=== PATIENT | male | born 1975 | race Caucasian/White ===

== ENCOUNTER 2022-06-09 17:08 | Inpatient (IN) | payer OTHER, SELFPAY ==
[2022-06-09 17:21] VITALS: BP 148/70; PULSE 67; RESP 18; TEMP 36.1; O2SAT 99; BMI 28.2
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
--- NOTE | 2022-06-09 18:31 | PC.NURSE ---
supplemental to triage: client states several years from lives in basement states has good jobs and doesnt even feel like an adult with a life anymore states HTN, elevated [id number], depression, anxiety, on oxycodone, xanax effexor, expresses anxious concern about his meds. reports previous suicide attempt with ether and a plastic bag, unsuccessful. patients father waited in waiting room along with client. statets finacial diffculty also acute depression duration two months. denies allucinations states onlyh uses thc at hs to help sleep.
[2022-06-09 18:36] LABS: COVID-19 Test Negative (Negative)
[2022-06-09 19:49] LABS: MANUAL DIFF FLAG NO
[2022-06-09 19:57] LABS: Basophils Absolute Auto 0.1 X10*3/uL (0.0-0.2); Basophils Percent Auto 0.7 % (0-2); Eosinophils Absolute Auto 0.1 X10*3/uL (0.0-0.4); Eosinophils Percent Auto 1.5 % (0-4); Hemoglobin 14.9 g/dl (14.0-18.0); Imm Gran Abs Auto 0.03 X10*3/uL (0.00-0.03); Imm Gran Pct Auto 0.3 % (0.0-0.4); Lymphocytes Absolute Auto 1.6 X10*3/uL (1.2-4.9); Lymphocytes Percent Auto 18.1 % (20-40); Mean Corpuscular HGB Conc 33.9 g/dl (31.0-36.0); Mean Corpuscular Hemoglobin 30.3 pg (27.0-33.0); Mean Corpuscular Volume 89.4 fL (80.0-98.0); Mean Platelet Volume 10.4 fL (9.4-12.4); Monocytes Absolute Auto 0.4 X10*3/uL (0.1-1.2); Monocytes Percent Auto 4.4 % (2-11); Neutrophils Absolute Auto 6.7 x10*3/uL (2.0-8.3); Platelet Count 294 X10*3/uL (160-400); Red Blood Count 4.92 X10*6/uL (4.60-5.80); White Blood Count 8.9 X10*3/uL (4.8-10.8)
[2022-06-09 20:08] LABS: Ethanol < 10 mg/dL
[2022-06-09 20:11] LABS: Alanine Aminotransferase 37 U/L (0-40); Albumin Level 4.7 g/dL (3.5-5.0); Alkaline Phosphatase 314 U/L (39-117); Aspartate Amino Transferase 25 U/L (5-37); Bilirubin Direct 0.3 mg/dL (0.0-0.5); Bilirubin Total 0.7 mg/dL (0.0-1.0); Total Protein 7.7 g/dL (6.5-8.0)
[2022-06-09 20:13] LABS: Alanine Aminotransferase 38 U/L (0-40); Albumin Level 4.7 g/dL (3.5-5.0); Alkaline Phosphatase 311 U/L (39-117); Anion Gap 14 (12-20); Aspartate Amino Transferase 24 U/L (5-37); Bilirubin Total 0.7 mg/dL (0.0-1.0); Blood Urea Nitrogen 8 mg/dL (9-16); Calcium 9.7 mg/dL (8.4-10.2); Carbon Dioxide 27 mmol/L (22-29); Chloride 104 mmol/L (96-108); Creatinine Clr Calc Pharmacy 108.4; Estimated Glomerular Filt Rate > 60; Glucose Random 163 mg/dL (60-115); Potassium 3.4 mmol/L (3.3-5.1); Sodium 142 mmol/L (135-145); Total Protein 7.7 g/dL (6.5-8.0)
[2022-06-09 20:52] LABS: Appearance Urine CLEAR; Color Urine YELLOW; Glucose Urine UA >=1000 MG/DL (NEG); Leukocyte Esterase Urine NEG (NEG); Nitrite Urine NEG (NEG); UACC Culture Trigger NO; Urine Blood 1+ (NEG); Urine Ketones NEG (NEG); Urine Protein NEG (NEG-TRACE)
[2022-06-09 21:03] LABS: Amphetamine Screen Urine Not Detected (Not Detect); Barbiturates, Urine Not Detected (Not Detect); Benzodiazepines Screen Urine POSITIVE (Not Detect); Cannabinoid Screen Urine POSITIVE (Not Detect); Cocaine Screen Urine Not Detected (Not Detect); Fentanyl, urine Not Detected (Not Detect); Opiate Screen Urine POSITIVE (Not Detect); Phencyclidine Screen Urine Not Detected (Not Detect)
[2022-06-09] MEDS: oxyCODONE HCl Immed Release 5 MG TABLET 10 MG PO (21:16)
[2022-06-09 21:30] LABS: Squamous Epithelial Cell Urine TRACE /LPF; WBC Urine 0-2 /HPF (0-4)
[2022-06-09 22:01] VITALS: BP 112/79; PULSE 56; RESP 18; TEMP 36.6; O2SAT 98
[2022-06-09] MEDS: ALPRAZolam 0.5 MG TABLET 1 MG PO (22:02)
[2022-06-09] MEDS: traZODone HCL 50 MG TABLET PO (22:02)
[2022-06-09] MEDS: Atorvastatin Calcium 20 MG TABLET PO (22:02)
[2022-06-09] MEDS: Metoprolol Tartrate 50 MG TABLET PO (22:02)
--- NOTE | 2022-06-10 | ECG_ITS ---
Test Reason : med clearance Blood Pressure : / mmHG Vent. Rate : 065 BPM Atrial Rate : 065 BPM P-R Int : 162 ms QRS Dur : 110 ms QT Int : 414 ms P-R-T Axes : 023 060 027 degrees QTc Int : 430 ms Normal sinus rhythm Lead misplacement, V1 and V2 When compared with ECG of 08-FEB-2019 15:24, No significant change was found Consider repeating EKG Referred By: Rohit Wick Electronically Signed By:GLORIA MCCULLOUGH MD
[2022-06-10 04:47] VITALS: BP 143/77; PULSE 56; RESP 17; TEMP 36.9; O2SAT 100
--- NOTE | 2022-06-10 07:15 | PC.NURSE ---
patient appears to remain asleep at present respirations are even and unlabored patient appears in no distress
--- NOTE | 2022-06-10 07:25 | PC.NURSE ---
Patient slept through the night, no distress observed/reported, disposition per [facility] is voluntary inpatient bed search, medication compliant,behavior non concerning, VSS, will continue to monitor.
--- NOTE | 2022-06-10 07:27 | PC.NURSE ---
Patient slept through the night, no distress observed/reported, disposition per care team is detox bed search, medication compliant, Ativan administered as ordered for comfort, behavior non concerning, VSS, will continue to monitor.
[2022-06-10] MEDS: Venlafaxine HCl ER 150 MG CAP.ER.24H PO (09:53)
[2022-06-10] MEDS: Omeprazole 40 MG CAPSULE.DR PO (09:53)
[2022-06-10] MEDS: lisinopriL 20 MG TABLET PO (09:55)
[2022-06-10] MEDS: Empagliflozin 10 MG TABLET PO (10:19)
[2022-06-10] MEDS: Metoprolol Tartrate 50 MG TABLET PO ×2 (10:19→21:01)
[2022-06-10 11:20] VITALS: BP 142/77; PULSE 65; RESP 16; TEMP 36.3; O2SAT 97
[2022-06-10] MEDS: ALPRAZolam 0.5 MG TABLET 1 MG PO ×3 (11:24→23:33)
--- NOTE | 2022-06-10 12:40 | PHA.MEDREC ---
Pharmacy Consult ? Medication Reconciliation RN has completed the medication reconciliation, pharmacy reviewed.
[2022-06-10] MEDS: oxyCODONE HCl Immed Release 5 MG TABLET 10 MG PO ×2 (15:48→21:22)
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
[2022-06-10] MEDS: Atorvastatin Calcium 20 MG TABLET PO (21:01)
[2022-06-10] MEDS: traZODone HCL 50 MG TABLET PO ×3 (21:07→23:36)
[2022-06-10 21:30] VITALS: BP 166/83; PULSE 66; RESP 16; TEMP 36.3; O2SAT 98
--- NOTE | 2022-06-11 | ECG_ITS ---
Test Reason : med clearence Blood Pressure : / mmHG Vent. Rate : 065 BPM Atrial Rate : 065 BPM P-R Int : 152 ms QRS Dur : 108 ms QT Int : 412 ms P-R-T Axes : 038 066 034 degrees QTc Int : 428 ms Normal sinus rhythm Normal ECG When compared with ECG of 10-JUN-2022 09:57, No significant change was found Referred By: Tri Ávlarez Electronically Signed By:GLORIA MCCULLOUGH MD
--- NOTE | 2022-06-11 00:03 | PC.ADMIT ---
Pt is a COVID-negative 46-year-old male who presented to [facility] ED with depression, SI with no plan, VH of shadows going by. During assessment, pt is A&O, INAD, appears manic at times and sts he may have bipolar. He has been isolating in the basement with his cat and sts he gets up at night to do his errands and this is the first time he has felt normal, laughing and conversing. MedicalHx: HTN; bulging, herniated disks, degenerative disk disease; chronic pain; migraines; bladder dysfunction. Reports x3 falls in last six months and questions whether left ear pain is causing imbalance. High fall risk as a result. Reports difficulty eating and recent weight loss of 35 pounds. PsycheHx: MDD, trauma, PTSD. Poor sleep. Rash on arms, legs, chest evaluated in ED determined to be low suspicion for infectious etiology.
[2022-06-11 09:30] VITALS: BP 187/88; PULSE 63; TEMP 36.3; O2SAT 100
[2022-06-11 09:37] LABS: Glucose, Whole Blood 93 mg/dL (60-115)
[2022-06-11 09:37] LABS: Alanine Aminotransferase 30 U/L (0-40); Albumin Level 4.6 g/dL (3.5-5.0); Alkaline Phosphatase 288 U/L (39-117); Anion Gap 17 (12-20); Aspartate Amino Transferase 23 U/L (5-37); Bilirubin Total 0.9 mg/dL (0.0-1.0); Blood Urea Nitrogen 11 mg/dL (9-16); Carbon Dioxide 29 mmol/L (22-29); Chloride 104 mmol/L (96-108); Cholesterol 155 mg/dL; Estimated Glomerular Filt Rate > 60; Glucose Fasting 107 mg/dL (60-99); HDL Cholesterol 30 mg/dL; LDL Cholesterol Calculated 94 mg/dl; Potassium 4.5 mmol/L (3.3-5.1); Sodium 145 mmol/L (135-145); Total Protein 7.6 g/dL (6.5-8.0); Triglycerides 157 mg/dL
[2022-06-11] MEDS: Omeprazole 40 MG CAPSULE.DR PO (09:56)
[2022-06-11] MEDS: Venlafaxine HCl ER 150 MG CAP.ER.24H PO (09:56)
[2022-06-11] MEDS: lisinopriL 20 MG TABLET PO (09:57)
[2022-06-11] MEDS: Empagliflozin 10 MG TABLET PO (09:57)
[2022-06-11] MEDS: Metoprolol Tartrate 50 MG TABLET PO (09:57)
[2022-06-11] MEDS: oxyCODONE HCl Immed Release 5 MG TABLET 10 MG PO (10:05)
[2022-06-11] MEDS: ALPRAZolam 0.5 MG TABLET 1 MG PO (13:06)
[2022-06-11] MEDS: Acetaminophen 325 MG TABLET 650 MG PO (13:29)
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
== END 2022-06-11 14:33 | disposition home health service (06) | DRG 751 ==
LOC: HO.ED 18:34 → HO.PADLT16 06-10 21:19
PROVIDERS: Admitting Provider Psychiatry & Neurology Psychiatry; Emergency Provider Emergency Medicine; Visit Provider Social Worker
DX: F33.1 Major depressive disorder, recurrent, moderate (principal); R45.851 Suicidal ideations; F17.210 Nicotine dependence, cigarettes, uncomplicated; L73.9 Follicular disorder, unspecified; Z71.6 Tobacco abuse counseling; Z79.84 Long term (current) use of oral hypoglycemic drugs; Z79.899 Other long term (current) drug therapy
CPT/HCPCS: 36415; 80053; 80061; 80076; 80307; 81001; 82077; 82248; 82947; 85025; 87635; 93005; 99285